=== PATIENT | female | born 1935 | race Caucasian/White ===

== ENCOUNTER 2024-01-06 19:28 | Inpatient (IN) | payer MEDICARE, BC, SELFPAY ==
[2024-01-06 14:30] VITALS: BP 136/68
[2024-01-06 14:50] LABS: % Basophils 0.4 % (0-2); % Eosinophils 0.1 % (0-6); % Immature Granulocytes 0.1 % (0-0.5); % Monocytes 8.2 % (1.7-9.3); % Neutrophils 72.2 % (42.2-75.2); Absolute Lymphocytes 1.4 10^3/uL (1.2-3.4); Absolute Monocytes 0.6 10^3/uL (0.1-0.6); Absolute Neutrophils 5.3 10^3/uL (1.4-6.5); Hematocrit 44.9 % (37.0-47.0); Hemoglobin 14.7 g/dL (12.0-16.0); Mean Corp Hgb Conc. 32.7 g/dL (33.0-37.0); Mean Corpuscular Hgb 32.2 pg (27.0-31.0); Mean Corpuscular Volume 98.2 fL (81.0-99.0); Mean Platelet Volume 10.8 fL (7.4-10.4); Nucleated Red Blood Cells % 0 %; Platelet Count 155 10^3/uL (130-400); Red Blood Cell Count 4.57 10^6/uL (4.20-5.40); White Blood Cell Count 7.4 10^3/uL (4.8-10.8)
[2024-01-06 15:19] LABS: ALT (SGPT) 12 U/L (0-35); AST (SGOT) 20 U/L (14-36); Albumin 3.9 g/dl (3.5-5.0); Alkaline Phosphatase 71 U/L (38-126); Blood Urea Nitrogen 17 mg/dl (7-17); Calcium 10.1 mg/dl (8.4-10.2); Carbon Dioxide 31 mmol/L (22-30); Chloride 104 mmol/L (98-107); Glucose 118 mg/dl (70-99); Potassium 4.2 mmol/L (3.5-5.1); Sodium 139 mmol/L (135-145); Total Bilirubin 1.1 mg/dl (0.2-1.3); Total Protein 6.1 g/dl (6.3-8.2); eGFR 54.53
[2024-01-06 15:54] LABS: Lactic Acid 1.5 mmol/L (0.7-2.0)
--- NOTE | 2024-01-06 16:45 | ED.SKININJ ---
HPI-Injury
<Joey Bowles PA-C - Last Filed: 01/06/24 17:03>
General
Chief Complaint: Skin Problem
Source: patient
Exam Limitations: none
Time Seen by Provider: 01/06/24 16:27
History of Present Illness-Injury
Initial Injury comments:
88-year-old female on Coumadin for history of A-fib presents with worsening redness pain and swelling to the right anterior leg. 10 days ago she bumped her leg while slipping in the shower and developed a hematoma. She developed increasing redness
and pain since then. She has been seen by orthopedics, Dr. Villa 2 times this week. Most recent was today. He saw her today and sent her in. She started on Keflex yesterday has had 2 doses in 24 hours. No sweats or chills. No chest pain or
shortness of breath. No other complaints at this time
Past History
<Joey Bowles PA-C - Last Filed: 01/06/24 17:03>
Past History
ED Past Medical History: HTN and Other (cataracts, macular degeneration)
ED Past Surgical History: Other
Social History
Tobacco: Smoker
Phy Exam
<Joey Bowles PA-C - Last Filed: 01/06/24 17:03>
Physical Exam
Physical Exam:
General: Well-appearing female no acute respiratory distress
HEENT: Normocephalic atraumatic
Heart: Regular rate and rhythm no murmurs
Lungs: Clear no wheeze or rales
Skin: Erythema surrounding hematoma noted over the anterior right acharya. This is tender to the touch. No drainage.
Extremities: No cyanosis
Course
<Joey Bowles PA-C - Last Filed: 01/06/24 17:03>
Orders/Labs/Results
Orders:
Orders
01/06/24 14:40
Complete Blood Count/With Diff Urgent
Comprehensive Metabolic Panel Urgent
Lactic Acid Q4H
Comment: ON ICE, CANCEL 2ND ORDER IF FIRST LACTIC ACID LEVEL <2
01/06/24 17:00
CeFAZolin 1 GRAM [Ancef] 1 gram in 5 ml IV NOW
01/06/24 17:02
Prothrombin Time Urgent
Abnormal Lab Results
01/06/24
14:40
MCH 32.2 H pg
(27.0-31.0)
MCHC 32.7 L g/dL
(33.0-37.0)
RDW 15.0 H %
(11.5-14.5)
MPV 10.8 H fL
(7.4-10.4)
Lymphocytes % 19.0 L %
(20.5-51.1)
Carbon Dioxide 31 H mmol/L
(22-30)
Glucose 118 H mg/dl
(70-99)
Total Protein 6.1 L g/dl
(6.3-8.2)
01/06/24 14:40
01/06/24 14:40
Vital Signs
Initial and Last Documented VS:
Initial Vital Signs
Temp Pulse Resp BP Pulse Ox
98.9 F 80 16 136/68 94
01/06/24 14:30 01/06/24 14:30 01/06/24 14:30 01/06/24 14:30 01/06/24 14:30
Last Documented Vital Signs
Temp Pulse Resp BP Pulse Ox
98.9 F 80 16 136/68 94
01/06/24 14:30 01/06/24 14:30 01/06/24 14:30 01/06/24 14:30 01/06/24 14:30
<Pat Kearney MD - Last Filed: 01/06/24 17:09>
Orders/Labs/Results
Orders:
Orders
01/06/24 14:40
Complete Blood Count/With Diff Urgent
Comprehensive Metabolic Panel Urgent
Lactic Acid Q4H
Comment: ON ICE, CANCEL 2ND ORDER IF FIRST LACTIC ACID LEVEL <2
01/06/24 17:00
CeFAZolin 1 GRAM [Ancef] 1 gram in 5 ml IV NOW
01/06/24 17:02
Prothrombin Time Urgent
Abnormal Lab Results
01/06/24
14:40
MCH 32.2 H pg
(27.0-31.0)
MCHC 32.7 L g/dL
(33.0-37.0)
RDW 15.0 H %
(11.5-14.5)
MPV 10.8 H fL
(7.4-10.4)
Lymphocytes % 19.0 L %
(20.5-51.1)
Carbon Dioxide 31 H mmol/L
(22-30)
Glucose 118 H mg/dl
(70-99)
Total Protein 6.1 L g/dl
(6.3-8.2)
01/06/24 14:40
01/06/24 14:40
Vital Signs
Initial and Last Documented VS:
Initial Vital Signs
Temp Pulse Resp BP Pulse Ox
98.9 F 80 16 136/68 94
01/06/24 14:30 01/06/24 14:30 01/06/24 14:30 01/06/24 14:30 01/06/24 14:30
Last Documented Vital Signs
Temp Pulse Resp BP Pulse Ox
98.9 F 80 16 136/68 94
01/06/24 14:30 01/06/24 14:30 01/06/24 14:30 01/06/24 14:30 01/06/24 14:30
<Joey Bowles PA-C - Last Filed: 01/06/24 17:03>
MDM/Problems Addressed
Differential Diagnosis Includes:
Hematoma right anterior acharya with surrounding erythema question possible cellulitis. No palpable fluid collection to suggest an abscess. She has been on antibiotics since yesterday and is getting worse. Seen by the foot and ankle specialist today
and sent here for admission for IV antibiotics.
Will check labs.
<Joey Bowles PA-C - Last Filed: 01/06/24 17:03>
*Critical Care Note
Total Time (30-74mins, 75-104mins- exclusive of procedures): Not Applicable
<Joey Bowles PA-C - Last Filed: 01/06/24 17:03>
Update Note
Update Note:
Reviewed call information from Dr. Villa the belt maker helper. He requested admission for IV antibiotics. Ancef ordered INR pending. Admit to hospitalist
ED Attending Note
<Joey Bowles PA-C - Last Filed: 01/06/24 17:03>
-
Portions of this chart may have been created with voice recognition software.� Occasional wrong word or��sound alike� substitutions may have occurred due to the inherent limitations of voice recognition software.
<Pat Kearney MD - Last Filed: 01/06/24 17:09>
ED Attending Note
Patient seen and examined by attending physician: Yes
I performed the substantive portion of visit, reviewed & personally made and approve the management plan that is documented in note by myself or WALDO.: Yes
ED Attending Note:
Patient presenting for worsening skin infection and sent for admission at the request of her belt maker helper. On my evaluation there is an area of erythema with underlying hematoma. Will treat with IV antibiotics and admit
Discharge Plan
Departure
Patient Disposition: Admit
Date of Disposition: 01/06/24
Time of Disposition: 17:03
Admit to: Med/Surg
Presentation/result/management discussed w/ accepting MD/DO: Hospitalist
Discharge Problem:
Cellulitis
Prescriptions:
No Action
lisinopril 20 MG tablet
20 mg PO 1700
warfarin [Jantoven] 2.5 MG tablet
2.5 mg PO MOFR
warfarin [Jantoven] 5 MG tablet
5 mg PO SUTUWETHSA
hydrochlorothiazide 12.5 MG capsule
12.5 mg PO 1700
zolpidem 10 MG tablet
10 mg PO HS
rosuvastatin 10 MG tablet
10 mg PO QPM
vit C,Y-Bn-dfxvc-lutein-zeaxan [PreserVision AREDS-2] 1 EACH capsule
2 cap PO 1700
Referrals:
UNKNOWN - PT DOES,NOT KNOW [Family Provider] -
Interventions
Interventions:
*Risk Screen - Suicide Last Done: 01/06/24 14:30
*General Assessment Last Done: 01/06/24 14:30
*Neglect/Abuse Screening Last Done: 01/06/24 14:30
Discharge Date and Time
Print Language: KOREAN
[2024-01-06] MEDS: ANCEF 1000 MG IV (17:21)
[2024-01-06 17:35] LABS: INR 1.04; PT 13.4 Sec (11.4-14.6)
--- NOTE | 2024-01-06 17:57 | HPS.HSE ---
Family Physician
-
Family Physician: NOT KNOW UNKNOWN - PT DOES
Chief Complaint
-
R leg pain
History of Present Illness
88 y/o F hx of PAD, PAF on Coumadin, Essential HTN, HLD, presents to ER with RLE redness/swelling and pain. She suffered a trauma 10 days ago - bumped her leg while slipping in the shower. She developed a hematoma and has followed with Dr. Villa
of orthopedics. In past few days she developed redness, swelling, and further pain. She was prescribed Keflex and took 2 doses without improvement. She was seen again today and referred to ER for admission and MRI To evaluate for underlying fluid
collection. No fevers, chills, no SOB or CP. Currently no other complaints.
Medical History
Past Medical History
Past Medical History: Reports Other (PAD, PAF on Coumadin, Essential HTN, HLD)
Past Surgical History: Reports Appendectomy, Cholecystectomy, Tonsilectomy and Other (carotid endarterectomy, )
Social History
Tobacco: Smoker
Alcohol: None
Drug: None
Living: With Family
Family History
Family History: Not pertinent
Allergies / Home Medications
Allergies reflects when Allergies were last updated in [facility].
Home Medications with original date entered in [facility]
Allergy/Medication List:
Allergies
Allergy/AdvReac Type Severity Reaction Status Date / Time
No Known Allergies Allergy Verified 01/06/24 14:30
Home Medications
hydrochlorothiazide 12.5 mg capsule 12.5 mg PO DAILY@169910/08/13
lisinopril 20 mg tablet 20 mg PO DAILY@169910/08/13
rosuvastatin 10 mg tablet 10 mg PO DAILY@169910/08/13
vit C 250 mg-vit E 90 mg-zinc 40 mg-copper 1 ed-ooqkfg-soosnw capsule (PreserVision AREDS-2) 2 cap PO DAILY@169910/08/13
warfarin 2.5 mg tablet (Jantoven) 2.5 mg PO DAILY@169910/08/13
aspirin 81 mg tablet,delayed release 81 mg PO DAILY@169901/06/24
cefadroxil 500 mg capsule 500 mg PO Q12H 01/06/24
Review of Systems
-
A 12 point ROS was completed and negative except as noted: Yes
Physical Exam
Vital Signs
Vital Signs
Temp Pulse Resp BP Pulse Ox
98.9 F 80 16 136/68 94
01/06/24 14:30 01/06/24 14:30 01/06/24 14:30 01/06/24 14:30 01/06/24 14:30
Physical Exam
General: No Apparent Distress
HEENT: NormoCephalic and Anicteric
Respiratory: No Wheezes
Cardiac: S1/S2 and Regular Rhythm
GI: Soft
Musculoskeletal: Other (Erythema surrounding hematoma noted over the anterior right acharya. This is tender to the touch. No drainage.)
Neuro: AO x 3
Hematologic/Lymphatic: No Lymphadenopathy
Psych: Calm
Laboratory Results
-
01/06/24 14:40
01/06/24 14:40
Laboratory Results
PT 13.4 Sec (11.4-14.6) 01/06/24 17:17
INR 1.04 01/06/24 17:17
Lactic Acid Cancelled 01/06/24 18:45
Total Bilirubin 1.1 mg/dl (0.2-1.3) 01/06/24 14:40
AST 20 U/L (14-36) 01/06/24 14:40
ALT 12 U/L (0-35) 01/06/24 14:40
Alkaline Phosphatase 71 U/L (38-126) 01/06/24 14:40
Data Reviewed
-
Lab Data: Labs Reviewed by me
Impression/Plan
-
Assessment:
RLE traumatic Hematoma with underlying infection
- start IV Ancef and IV Vancomycin. Consult ID.
- check MRI to evaluate for underlying collection
- consult Orthopedics ([facility])
- holding Coumadin in case of operative intervention required
Parox A. Fib
- hold Coumadin; start IV heparin which requires intensive monitoring. Awaiting patients weight for accurate dosing.
Hx of PAD
Hx of HLD
- continue ASA/statin
Essential HTN
- continue BP meds
DVT ppx: IV Heparin drip
Code: Full
[2024-01-06 18:34] VITALS: BMI 33.2
[2024-01-06 18:39] VITALS: BP 158/76
[2024-01-06 20:49] VITALS: BP 173/81; BMI 31.4
--- NOTE | 2024-01-06 21:02 | PHA.VAN.IN ---
Assessment
- Assessment
Renal Function: Unknown baseline
Concomitant Antimicrobials: ANCEF
- Previous Dosing Experience
Previous Regimen: NONE
AUC Dosing Plan
- Dosing Variables
Dosing Weight (kg): 96
Dosing CrCl (ml/min): 47
Vd coefficient (L/kg): 0.6
- Empiric Dosing
Initial / Loading Dose: 2GM
Maintenance Regimen: 1250MG IV Q24H
Estimated AUC (mcg*h/mL): 516
Estimated Peak (mcg*h/mL): 33.5
Estimated Trough (mcg/ml): 12.6
Estimated Half Life (H): 16
Pharmacokinetics Vancomycin I
- -
Patient Age: 88
Patient Sex: Female
Vancomycin Day #: 1
Indication: Skin And Soft Tissue (RLE CELLULITIS)
Requesting Provider: ELAYNE
Height / Weight:
Height 5 ft 7 in
Actual Weight 90.974 kg
- Vital Signs / Lab Results
Temp Pulse Resp BP Pulse Ox
97.7 F 66 18 173/81 95
01/06/24 20:49 01/06/24 20:49 01/06/24 20:49 01/06/24 20:49 01/06/24 20:49
Lab Results - Hematology
01/06/24
14:40
WBC 7.4
Lab Results - Chemistry
01/06/24
14:40
BUN 17
Creatinine 1.0
Albumin 3.9
01/06/24 01/06/24
14:40 18:45
Lactic Acid 1.5 Cancelled
[2024-01-06 21:07] LABS: APTT 29.2 Sec (23.4-35.0)
[2024-01-06] MEDS: VANCOCIN 540 MG IV (21:11)
[2024-01-06 21:41] VITALS: BMI 31.4
[2024-01-06] MEDS: HEPARIN 25000 UNITS/250 ML IV (22:28)
[2024-01-06 23:40] VITALS: BP 158/78
[2024-01-07] MEDS: ANCEF 5 IV ×2 (02:33→10:31)
[2024-01-07 03:14] VITALS: BP 160/91
[2024-01-07 05:14] LABS: Hematocrit 41.8 % (37.0-47.0); Hemoglobin 13.9 g/dL (12.0-16.0); Mean Corp Hgb Conc. 33.3 g/dL (33.0-37.0); Mean Corpuscular Hgb 32.2 pg (27.0-31.0); Mean Corpuscular Volume 96.8 fL (81.0-99.0); Platelet Count 136 10^3/uL (130-400); Red Blood Cell Count 4.32 10^6/uL (4.20-5.40); Red Cell Dist. Width 15.1 % (11.5-14.5)
[2024-01-07 05:19] LABS: APTT 86.1 Sec (23.4-35.0)
[2024-01-07] MEDS: VANCOCIN 275 MG IV (05:22)
[2024-01-07 05:33] LABS: Blood Urea Nitrogen 15 mg/dl (7-17); Calcium 9.6 mg/dl (8.4-10.2); Carbon Dioxide 25 mmol/L (22-30); Chloride 111 mmol/L (98-107); Estimated Creatinine Clearance 51 ml/min; Glucose 104 mg/dl (70-99); Potassium 4.2 mmol/L (3.5-5.1); Sodium 138 mmol/L (135-145); eGFR > 60.00
[2024-01-07 07:00] VITALS: BP 177/90
--- NOTE | 2024-01-07 08:14 | PHA.VAN.FU ---
Vancomycin Assessment / Plan
- Assessment
Renal Function: SCR Decreasing (1.0>0.9)
WBC's are: Trending Down (7.4>6.0)
In the past 24 hrs, patient has been: Afebrile
Concomitant Antimicrobials: Cefazolin
- Dosing Plan
Continue: Vancomycin 1250mg IV Q24hr
- Monitoring Plan
No level(s) ordered at this time: Will order levels according to vancomycin dosing protocol
- Follow Up
Pharmacy will continue to follow.
Vancomycin Follow UP
- -
Patient Age: 88
Patient Sex: Female
Vancomycin Day #: 2
Indication: Skin And Soft Tissue (RLE CELLULITIS)
Requesting Provider: ELAYNE
Pertinent Antimicrobial Allergies:
No known antibiotic allergies
Height / Weight:
Height 5 ft 7 in
Actual Weight 90.974 kg
IBW in k.6
Adjusted BW in k.3
Pertinent Past Medical History: BMI~31
- Vital Signs / Lab Results
Temp Pulse Resp BP Pulse Ox
98.1 F 77 18 177/90 95
01/07/24 07:00 01/07/24 07:00 01/07/24 07:00 01/07/24 07:00 01/07/24 07:00
Lab Results - Hematology
01/06/24 01/07/24
14:40 04:44
WBC 7.4 6.0
Lab Results - Chemistry
01/06/24 01/07/24
14:40 04:44
BUN 17 15
Creatinine 1.0 0.9
Estimated Creat Clear 51
Albumin 3.9
01/06/24 01/06/24
14:40 18:45
Lactic Acid 1.5 Cancelled
--- NOTE | 2024-01-07 10:47 | W.PN.HOSP.TC ---
Today's Communication/Plan
-
IV heparin for now until clarified that no procedures planned. MRI is pending
continue IV Abx
follow ID/Ortho recs
Assessment / Plan
Assessment / Plan
Assessment:
RLE traumatic Hematoma with underlying infection
- continue IV Ancef
- continue IV Vancomycin (requires intensive monitoring of levels)
- ID consulted
- check MRI to evaluate for underlying collection
- consult Orthopedics ([facility])
- holding Coumadin in case of operative intervention required
Parox A. Fib
- hold Coumadin; continue IV heparin which requires intensive monitoring
Hx of PAD
Hx of HLD
- continue ASA/statin
Essential HTN
- continue BP meds
DVT ppx: IV Heparin drip
Code: Full
Anticipated Discharge: > 48 hours
Subjective/Interval History
-
Date of Service: January 07, 2024
reports R leg pain but wound improving
no fever/chills
Objective Data
-
Labs:
Laboratory Results
01/07/24 01/07/24
04:44 11:30
WBC 6.0
Hgb 13.9
Hct 41.8
Plt Count 136
APTT 86.1 H Pending
Sodium 138
Potassium 4.2
Chloride 111 H
Carbon Dioxide 25
BUN 15
Creatinine 0.9
Glucose 104 H
Calcium 9.6
Vital Signs:
Vital Signs
Temp Pulse Resp BP Pulse Ox
98.1 F 77 18 177/90 95
01/07/24 07:00 01/07/24 07:00 01/07/24 07:00 01/07/24 07:00 01/07/24 07:00
I&O
01/06/24 01/07/24 01/08/24
06:59 06:59 06:59
Intake Total 1355 / 1355
Balance 1355 / 1355
Physical Exam
-
General: No Apparent Distress
HEENT: Normocephalic and Atraumatic
Respiratory: Negative Wheezes
Cardiac: Regular Rhythm and S1/S2
GI: Soft
Genito-urinary: No Costovertebral Tender
Musculoskeletal: Other (RLE wound, with surrounding erythema, improving)
Neuro: AO x 3
Hematologic / Lymphatic: No Lymphadenopathy
Psych: Calm
Data Reviewed
-
Total Time Spent with Patient (in minutes): 51
Labs: Labs Reviewed by me
[2024-01-07 11:00] VITALS: BP 152/90
--- NOTE | 2024-01-07 11:00 | W.PN.UPDATE ---
Update Note
Progress Note Update
Patient seen at bedside with daughter
-Compression dressing applied
-Obtain MRI RLE
-Continue antibiotics, appreciate ID recs
-Will follow
[2024-01-07 11:47] LABS: APTT 83.2 Sec (23.4-35.0)
[2024-01-07] MEDS: ATIVAN 0.5 MG PO (13:09)
--- NOTE | 2024-01-07 13:23 | CON.ID ---
Consultation
-
Date/Time Consultation Requested: 01/06/20242034
Date/Time Consultation Performed: 01/07/2024 1315
Requesting Provider: Dr. Laughlin
Performing Provider: Dr. Goldsmith
Reason for Consultation: Right lower extremity cellulitis
Chief Complaint / Past History
History of Present Illness
Melissa Pat is a 8-year-old female being evaluated at the request of Dr. Laughlin in regards to right lower extremity cellulitis. History is obtained from chart review, along with patient interview.
The patient has a significant past medical history of A-fib, and is maintained on anticoagulation. She reports that approximately 10 days ago she was getting in the tub to take a shower. She placed a left foot down but it slid slightly and she
banged the anterior portion of her right leg. She reports that there was significant bleeding thereafter but it subsequently stopped with compression.
Over the intervening days she had some increase in redness, but has had ongoing pain and discomfort in the area. She has been followed by Orthopedics in the outpatient setting but yesterday the area appeared worse and she was sent in for further
evaluation. She was on Keflex yesterday for 2 doses prior to admission.
At the present, she notes swelling of the leg, along with a 'burning' sensation to the anterior leg area.
Past History
Additional Past Medical History:
HTN
A-fib (on Coumadin)
Cataracts
Macular degeneration
PAD
Dyslipidemia
Additional Past Surgical History:
Appendectomy
Cholecystectomy
Tonsillectomy
Carotid endarterectomy
Allergy History:
No Known Allergies Allergy (Verified 01/06/24 14:30)
Medications Reviewed: Yes
Current Antibiotics:
Cefazolin 1 g every 8 hours
Vancomycin (dosing per pharmacy)
Social History
Tobacco: Smoker (1 PPD)
Alcohol: Daily
Drug: None
Living: With Family
Employment: Not Employed
Family History
Family History: Not Pertinent
Review of Systems
Vital Signs
Temp Pulse Resp BP Pulse Ox
97.9 F 75 18 152/90 96
01/07/24 11:00 01/07/24 11:00 01/07/24 11:00 01/07/24 11:00 01/07/24 11:00
Physical Exam
Physical Exam
Constitutional: No Acute Distress, Comfortable and Non-toxic
Head: Normocephalic
Eyes: Pupils Equal, Pupils Round, No Conjunctival Hemorrhage and Sclera Anicteric
Oral: No Thrush and No Ulcers
Cardiovascular: Irregular Rate and S1/S2; Negative S3/S4 or Murmur
Pulmonary: Clear; Negative Wheezes, Rales or Rhonchi
Gastrointestinal: Soft, Non Tender, Non Distended, Normal Bowel Sounds, No Rebound and No Guarding
Extremities: Edema and Erythema
Wound: Other (Anterior tibial hemorrhage noted with surrounding erythema. Positive edema. No purulence.)
Neurological: Awake and Alert
Psychological: Calm
Lab / Diagnostic Study Results
01/07/24 04:44
01/07/24 04:44
Abs Immat Gran (auto) 0.0 10^3/uL (0-0.05) 01/06/24 14:40
Absolute Neuts (auto) 5.3 10^3/uL (1.4-6.5) 01/06/24 14:40
Absolute Lymphs (auto) 1.4 10^3/uL (1.2-3.4) 01/06/24 14:40
Absolute Monos (auto) 0.6 10^3/uL (0.1-0.6) 01/06/24 14:40
Absolute Basos (auto) 0.0 10^3/uL (0-0.2) 01/06/24 14:40
Immature Gran % 0.1 % (0-0.5) 01/06/24 14:40
Neutrophils % 72.2 % (42.2-75.2) 01/06/24 14:40
Lymphocytes % 19.0 % (20.5-51.1) L 01/06/24 14:40
Monocytes % 8.2 % (1.7-9.3) 01/06/24 14:40
Eosinophils % 0.1 % (0-6) 01/06/24 14:40
Basophils % 0.4 % (0-2) 01/06/24 14:40
PT 13.4 Sec (11.4-14.6) 01/06/24 17:17
INR 1.04 01/06/24 17:17
Lactic Acid Cancelled 01/06/24 18:45
Microbiology Results
Micro:
01/06/24 21:51 MRSA Screen - Pending
Nose
Assessment / Plan
Right lower extremity hematoma secondary to trauma
Suspected cellulitis
HTN
A-fib (on Coumadin)
Cataracts
Macular degeneration
PAD
Dyslipidemia
Recommendations:
Continue with cefazolin. Increase dose to 2 g IV every 8 hours
Discontinue further vancomycin.
Patient currently going for MRI to assess for underlying hematoma. If seen, may need some degree of evacuation.
Monitor white count temperature curve.
Local care to the wound bed area
--- NOTE | 2024-01-07 14:03 | CM ---
CM following re: discharge planning.
Reviewed pt's chart, met with pt and pt's daughter at bedside.
Pt is an 88 year old female, admitted with primary dx of RLE traumatic Hematoma with underlying infection.
Pt reports she lives in [place] and just moved to daughter's house one week ago and will stay with daughter, 1SH, no steps. Pt reports her another daughter , emotional support offered and provided. Pt described herself as independent in
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 NO DME, VN or SNF history.
PCP: per daughter, pt's PCP will be [facility]
Pharmacy: [facility]
D/C plan: home with anticipated no needs. Daughter to transport at discharge.
CM will follow with discharge plan updates as hospitalization progresses
[2024-01-07] MEDS: ANCEF 10 IV ×2 (14:47→23:10)
[2024-01-07 15:00] VITALS: BP 159/88
[2024-01-07] MEDS: ORETIC 12.5 MG PO (16:35)
[2024-01-07] MEDS: ASPIR LOW (ENTERIC COATED) 81 MG PO (16:36)
[2024-01-07] MEDS: CRESTOR 10 MG PO (16:36)
[2024-01-07] MEDS: ZESTRIL 20 MG PO (16:36)
[2024-01-07 18:28] LABS: APTT 67.5 Sec (23.4-35.0)
[2024-01-07 19:26] VITALS: BP 144/81
[2024-01-07 23:16] VITALS: BP 157/77
[2024-01-07] MEDS: HEPARIN 25000 UNITS/250 ML IV (23:48)
[2024-01-08 02:54] LABS: APTT 105.8 Sec (23.4-35.0)
[2024-01-08 03:10] VITALS: BP 136/78
[2024-01-08] MEDS: ANCEF 10 IV (05:18)
[2024-01-08 07:00] VITALS: BP 129/84
[2024-01-08] MEDS: TYLENOL 650 MG PO (08:24)
--- NOTE | 2024-01-08 09:24 | W.PN.UPDATE ---
Update Note
Progress Note Update
Ms. Pat is resting comfortably in bed this morning. She reports she is feeling about the same. She has no questions or concerns at this time.
On exam, the erythema about her anterior acharya is slightly improved from yesterday. There is serosanguineous drainage on the dressing, but no draining or bleeding at present.
MRI R Lower Extremity IMPRESSION:
1. Irregular small region of nonenhancing T2 hyperintense signal in the subcutaneous fat of the anterior right lower leg measuring approximately 1.8 x 0.9 cm. Differential considerations include a laceration, hematoma, or small developing abscess.
Adjacent subcutaneous soft tissue edema and enhancement suggesting cellulitis.
2. No MRI evidence for osteomyelitis or septic arthritis.
Overall, Ms. Pat seems to be gradually improving. Based on this and her MRI findings, there is no indication for surgical intervention at this time. This was discussed with the patient, and she is in agreement with this plan. She is eager to be
discharged home. Continue with abx per medicine and ID. Her leg was re-wrapped in a compressive dressing this morning. Ortho/podiatry will continue to follow along. Please reach out with any additional questions or concerns.
[2024-01-08 09:54] LABS: APTT 115.1 Sec (23.4-35.0)
[2024-01-08 10:03] LABS: Blood Urea Nitrogen 15 mg/dl (7-17); Calcium 9.8 mg/dl (8.4-10.2); Carbon Dioxide 27 mmol/L (22-30); Chloride 104 mmol/L (98-107); Estimated Creatinine Clearance 51 ml/min; Glucose 132 mg/dl (70-99); Potassium 4.1 mmol/L (3.5-5.1); Sodium 137 mmol/L (135-145); eGFR > 60.00
[2024-01-08 10:37] LABS: Hematocrit 41.4 % (37.0-47.0); Hemoglobin 13.7 g/dL (12.0-16.0); Mean Corp Hgb Conc. 33.1 g/dL (33.0-37.0); Mean Corpuscular Hgb 32.2 pg (27.0-31.0); Mean Corpuscular Volume 97.2 fL (81.0-99.0); Mean Platelet Volume 11.5 fL (7.4-10.4); Platelet Count 137 10^3/uL (130-400); Red Blood Cell Count 4.26 10^6/uL (4.20-5.40); White Blood Cell Count 6.5 10^3/uL (4.8-10.8)
[2024-01-08 11:00] VITALS: BP 143/69
--- NOTE | 2024-01-08 11:43 | W.PN.ID1 ---
Date of Service
Date of Service: January 08, 2024
Today's Communication
Transition to keflex.
Assessment / Plan
Right lower extremity hematoma secondary to trauma
Suspected cellulitis
HTN
A-fib (on Coumadin)
Cataracts
Macular degeneration
PAD
Dyslipidemia
Recommendations:
Hematoma stable. Erythema minimal.
Continue with local care to the hematoma site. I have counseled the family that there may be skin breakdown given tissue infiltration by blood, and she may ultimately develop some degree of wound in the area. Overall, the area appears stable, and
I would continue with local care.
Transition to oral Keflex for an additional 5 days of therapy.
����������������������������������������������������������
Chief Complaint
-: Other (RLE hematoma)
Subjective / Review of Systems
Review of Systems: No Fever and No Chills
Vital Signs / Physical Exam
Vital Signs
Vital Signs
Temp Pulse Resp BP Pulse Ox
97.8 F 82 18 129/84 95
01/08/24 07:00 01/08/24 07:00 01/08/24 07:00 01/08/24 07:00 01/08/24 07:00
Physical Exam
Constitutional: No Acute Distress, Comfortable and Non-toxic
Eyes: Sclera Anicteric
Pulmonary: Non Labored
Extremities: Edema (trace RLE) and Erythema (mild)
Wound: Other (distal right anterior tibial hematoma. )
Neurological: Awake and Alert
Psychological: Calm
Objective Data
Lab Data
Lab Results
01/08/24 09:16
01/08/24 09:16
PT 13.4 Sec (11.4-14.6) 01/06/24 17:17
INR 1.04 01/06/24 17:17
APTT 115.1 Sec (23.4-35.0) H 01/08/24 09:16
Estimated Creat Clear 51 ml/min 01/08/24 09:16
Lactic Acid Cancelled 01/06/24 18:45
Total Bilirubin 1.1 mg/dl (0.2-1.3) 01/06/24 14:40
AST 20 U/L (14-36) 01/06/24 14:40
ALT 12 U/L (0-35) 01/06/24 14:40
Alkaline Phosphatase 71 U/L (38-126) 01/06/24 14:40
Most recent labs reviewed.
Micro Results:
01/06/24 21:51 MRSA Screen - Final
Nose No Methicillin Resistant Staphylococcus aureus isolated.
Imaging:
01/07/2024 MRI right lower extremity: Irregular small region of nonenhancing T2 hyperintense signal in the subcutaneous fat of the anterior right lower leg measuring approximately 1.8 x 0.9 cm. Differential considerations include a laceration,
hematoma, or small developing abscess. Adjacent subcutaneous soft tissue edema and enhancement suggesting cellulitis. No MRI evidence for osteomyelitis or septic arthritis.
Care Review
Plan reviewed with: Physician (Hospitalist)
--- NOTE | 2024-01-08 12:42 | W.PN.HOSP.TC ---
Today's Communication/Plan
-
dc home
Assessment / Plan
Assessment / Plan
Assessment:
RLE traumatic Hematoma with underlying infection
- MRI: Irregular small region of nonenhancing T2 hyperintense signal in the subcutaneous fat of the anterior right lower leg measuring approximately 1.8 x 0.9 cm. Differential considerations include a laceration, hematoma, or small developing
abscess. Adjacent subcutaneous soft tissue edema and enhancement suggesting cellulitis. No MRI evidence for osteomyelitis or septic arthritis.
- no operative intervention per Ortho
- s/p IV Ancef, transitioned to PO Keflex x 5 days per ID
- OP Ortho f/u
Parox A. Fib
- resume Coumadin at discharge
Hx of PAD
Hx of HLD
- continue ASA/statin
Essential HTN
- continue BP meds
DVT ppx: Coumadin
Code: Full
More than 30 minutes spent in discharge including
Final examination of the patient
Summarizing hospital stay
Instructions for continuing care to all relevant caregivers
Preparation of discharge records, prescriptions, and referral forms
Total time spent (in minutes):41
Anticipated Discharge: Today
Subjective/Interval History
-
Date of Service: January 08, 2024
no acute events
feels like pain improving, no fever/chills
Objective Data
-
Labs:
Laboratory Results
01/08/24 01/08/24 01/08/24
02:13 09:16 16:00
WBC 6.5
Hgb 13.7
Hct 41.4
Plt Count 137
APTT 105.8 H 115.1 H Pending
Sodium 137
Potassium 4.1
Chloride 104
Carbon Dioxide 27
BUN 15
Creatinine 0.9
Glucose 132 H
Calcium 9.8
Vital Signs:
Vital Signs
Temp Pulse Resp BP Pulse Ox
97.8 F 82 18 129/84 95
01/08/24 07:00 01/08/24 07:00 01/08/24 07:00 01/08/24 07:00 01/08/24 07:00
I&O
01/07/24 01/08/24 01/09/24
06:59 06:59 06:59
Intake Total 1355 / 1355 1040 / 1040
Balance 1355 / 1355 1040 / 1040
Physical Exam
-
General: No Apparent Distress
HEENT: Normocephalic and Atraumatic
Respiratory: Negative Wheezes
Cardiac: Regular Rhythm and S1/S2
GI: Soft
Genito-urinary: No Costovertebral Tender
Musculoskeletal: Other (RLE wound, with surrounding erythema, improving)
Neuro: AO x 3
Psych: Calm
Data Reviewed
-
Total Time Spent with Patient (in minutes): 41
Labs: Labs Reviewed by me
--- NOTE | 2024-01-08 12:48 | W.DS.TRANS ---
DC Summary - Patient Accounts Coordinator
-
Discharge Instructions:
Sleep Apnea Risk Low
Discharge Diagnosis/Procedures RLE hematoma with cellulitis
Diet Regular
Activity As tolerated
Instructions:
Stand-Alone Forms:
Changes to Home Medications: No
Discharge Medications:
DC Medications w/original date entered in [facility]
lisinopril 20 mg tablet 20 mg PO DAILY@1700 Blood Pressure 10/08/13
rosuvastatin 10 mg tablet 10 mg PO DAILY@1700 High Cholesterol 10/08/13
vit C 250 mg-vit E 90 mg-zinc 40 mg-copper 1 qq-rppnpk-etojga capsule (PreserVision AREDS-2) 2 cap PO DAILY@1700 Supplement 10/08/13
warfarin 2.5 mg tablet (Jantoven) 2.5 mg PO DAILY@1700 Blood Clot Prevention/Tx 10/08/13
aspirin 81 mg tablet,delayed release 81 mg PO DAILY@1700 Blood Clot Prevention/Tx 01/06/24
cephalexin 500 mg capsule 500 mg PO QID #20 caps 01/08/24
hydrochlorothiazide 12.5 mg tablet 12.5 mg PO DAILY@1700 #30 tabs 01/08/24
Home Medication Changes
Pending Results: No
Total time spent discharging patient (in min): 42
[2024-01-08] MEDS: KEFLEX 500 MG PO (12:56)
--- NOTE | 2024-01-08 13:00 | CM ---
CM following re: discharge planning.
Reviewed pt's chart, met with pt and daughter Saba at bedside.
Discharge order noted. Both pt and her daughter are aware, expressed their agreement with discharge. IMM reviewed, placed on chart, pt has a copy.
Pt stated she is independent with functional ability, no after care VN services indicated. pt stated she will be adjusting to her new place at daughter's house. pt's daughter stated she will make an appointment with new PCP soon.
D/C plan: home no needs. Daughter to transport.
== END 2024-01-08 13:39 | disposition home or self-care (01) | DRG 603 ==
LOC: 3 WEST ACU 19:28
PROVIDERS: Emergency Medicine; Physician Assistant; ADMITTING PHYSICIAN Pediatrics Neonatal-Perinatal Medicine; ATTENDING PHYSICIAN Internal Medicine; CONSULT PHYSICIAN Internal Medicine Infectious Disease; CONSULT PHYSICIAN Student in an Organized Health Care Education/Training Program; EMERGENCY PHYSICIAN Student in an Organized Health Care Education/Training Program
DX: L03.115 Cellulitis of right lower limb (principal); S80.11XA Contusion of right lower leg, initial encounter; M79.89 Other specified soft tissue disorders; I48.0 Paroxysmal atrial fibrillation; H26.9 Unspecified cataract; I73.9 Peripheral vascular disease, unspecified; E78.5 Hyperlipidemia, unspecified; H35.30 Unspecified macular degeneration; I10 Essential (primary) hypertension; F17.210 Nicotine dependence, cigarettes, uncomplicated; W18.2XXA Fall in (into) shower or empty bathtub, initial encounter; Y93.E1 Activity, personal bathing and showering; Y92.002 Bathroom of unspecified non-institutional (private) residence as the place of occurrence of the external cause; Z79.01 Long term (current) use of anticoagulants
CPT/HCPCS: 73720; 80048; 80053; 83605; 85025; 85027; 85610; 85730; 87070; 96374; 99285; A9575

== ENCOUNTER → 2024-01-23 07:48 | Outpatient (REF) | payer MEDICARE, BC, SELFPAY | LOC: WOUND 07:48 | PROVIDERS: ATTENDING PHYSICIAN Surgery; FAMILY PHYSICIAN Nurse Practitioner Family | DX: L97.223 Non-pressure chronic ulcer of left calf with necrosis of muscle (principal); I48.91 Unspecified atrial fibrillation; Z79.01 Long term (current) use of anticoagulants; F17.210 Nicotine dependence, cigarettes, uncomplicated | CPT/HCPCS: 11042; 99203 ==

== ENCOUNTER → 2024-01-30 14:37 | Outpatient (REF) | payer MEDICARE, BC, SELFPAY | LOC: WOUND 14:37 | PROVIDERS: ATTENDING PHYSICIAN Surgery; FAMILY PHYSICIAN Nurse Practitioner Family | DX: L97.223 Non-pressure chronic ulcer of left calf with necrosis of muscle (principal); F17.210 Nicotine dependence, cigarettes, uncomplicated; I48.91 Unspecified atrial fibrillation; Z79.01 Long term (current) use of anticoagulants | CPT/HCPCS: 11042 ==

== ENCOUNTER → 2024-02-13 09:40 | Outpatient (REF) | payer MEDICARE, BC, SELFPAY | LOC: WOUND 09:40 | PROVIDERS: ATTENDING PHYSICIAN Surgery; FAMILY PHYSICIAN Nurse Practitioner Family | DX: L97.223 Non-pressure chronic ulcer of left calf with necrosis of muscle (principal); F17.210 Nicotine dependence, cigarettes, uncomplicated; Z79.01 Long term (current) use of anticoagulants; I48.91 Unspecified atrial fibrillation | CPT/HCPCS: 11042 ==

== ENCOUNTER → 2024-02-20 13:30 | Outpatient (REF) | payer MEDICARE, BC, SELFPAY | LOC: WOUND 13:30 | PROVIDERS: ATTENDING PHYSICIAN Surgery | DX: L97.223 Non-pressure chronic ulcer of left calf with necrosis of muscle (principal); F17.210 Nicotine dependence, cigarettes, uncomplicated; I48.91 Unspecified atrial fibrillation; Z79.01 Long term (current) use of anticoagulants | CPT/HCPCS: 11042 ==

== ENCOUNTER → 2024-02-27 09:08 | Outpatient (REF) | payer MEDICARE, BC, SELFPAY | LOC: WOUND 09:08 | PROVIDERS: ATTENDING PHYSICIAN Surgery; FAMILY PHYSICIAN Nurse Practitioner Family | DX: L97.223 Non-pressure chronic ulcer of left calf with necrosis of muscle (principal); I48.91 Unspecified atrial fibrillation; Z79.01 Long term (current) use of anticoagulants; F17.210 Nicotine dependence, cigarettes, uncomplicated | CPT/HCPCS: 11042 ==

== ENCOUNTER → 2024-03-12 09:39 | Outpatient (REF) | payer MEDICARE, BC, SELFPAY | LOC: WOUND 09:39 | PROVIDERS: ATTENDING PHYSICIAN Surgery; FAMILY PHYSICIAN Nurse Practitioner Family | DX: L97.223 Non-pressure chronic ulcer of left calf with necrosis of muscle (principal); I48.91 Unspecified atrial fibrillation; F17.210 Nicotine dependence, cigarettes, uncomplicated; Z79.01 Long term (current) use of anticoagulants | CPT/HCPCS: 99213 ==

== ENCOUNTER → 2024-03-26 08:35 | Outpatient (REF) | payer MEDICARE, BC, SELFPAY | LOC: WOUND 08:35 | PROVIDERS: ATTENDING PHYSICIAN Surgery; FAMILY PHYSICIAN Nurse Practitioner Family | DX: L97.223 Non-pressure chronic ulcer of left calf with necrosis of muscle (principal); F17.210 Nicotine dependence, cigarettes, uncomplicated; I48.91 Unspecified atrial fibrillation; Z79.01 Long term (current) use of anticoagulants | CPT/HCPCS: 99212 ==

== ENCOUNTER → 2024-06-28 12:13 | Outpatient (REF) | payer MEDICARE, BC, SELFPAY | LOC: HWRAD 12:13 | PROVIDERS: ATTENDING PHYSICIAN Nurse Practitioner Family | DX: M54.50 Low back pain, unspecified (principal); M25.552 Pain in left hip | CPT/HCPCS: 72110; 73502 ==

== ENCOUNTER → 2024-07-14 10:50 | Outpatient (REF) | payer MEDICARE, BC, SELFPAY | LOC: RAD 10:50 | PROVIDERS: ATTENDING PHYSICIAN Physician Assistant; FAMILY PHYSICIAN Nurse Practitioner Family | DX: M54.16 Radiculopathy, lumbar region (principal) | CPT/HCPCS: 72131 ==

== ENCOUNTER → 2025-01-23 14:40 | Outpatient (REF) | payer MEDICARE, BC, SELFPAY | LOC: EMG 14:40 | PROVIDERS: ATTENDING PHYSICIAN Physician Assistant; FAMILY PHYSICIAN Nurse Practitioner Family | DX: M48.062 Spinal stenosis, lumbar region with neurogenic claudication (principal); M54.16 Radiculopathy, lumbar region; M79.605 Pain in left leg; R20.0 Anesthesia of skin | CPT/HCPCS: 95886; 95910 ==

== ENCOUNTER → 2025-03-05 07:42 | Outpatient (REF) | payer MEDICARE, BC, SELFPAY | LOC: RAD 07:42 | PROVIDERS: ATTENDING PHYSICIAN Registered Nurse; FAMILY PHYSICIAN Nurse Practitioner Family | DX: Z13.6 Encounter for screening for cardiovascular disorders (principal); I65.23 Occlusion and stenosis of bilateral carotid arteries; I73.9 Peripheral vascular disease, unspecified; I87.2 Venous insufficiency (chronic) (peripheral); M79.89 Other specified soft tissue disorders | CPT/HCPCS: 76770; 93880; 93922; 93925; 93970 ==

== ENCOUNTER 2025-03-14 06:13 | Day surgery (SDC) | payer MEDICARE, BC, SELFPAY ==
[2025-03-14] VITALS (26 sets, daily range): BP systolic 70–137; BP diastolic 40–70; BMI 32.0
[2025-03-14] MEDS: NSS 500 IV (06:48)
[2025-03-14 06:57] LABS: Hematocrit 46.6 % (37.0-47.0); Hemoglobin 15.6 g/dL (12.0-16.0); Mean Corp Hgb Conc. 33.5 g/dL (33.0-37.0); Mean Corpuscular Volume 95.9 fL (81.0-99.0); Platelet Count 116 10^3/uL (130-400); Red Cell Dist. Width 13.5 % (11.5-14.5)
[2025-03-14 07:00] LABS: INR 1.05; PT 14.2 Sec (11.4-14.6)
[2025-03-14 07:01] LABS: APTT 31.1 Sec (23.4-35.0)
[2025-03-14 07:07] LABS: Blood Urea Nitrogen 29 mg/dl (7-17); Calcium 10.0 mg/dl (8.4-10.2); Carbon Dioxide 32 mmol/L (22-30); Chloride 103 mmol/L (98-107); Estimated Creatinine Clearance 34 ml/min; Glucose 98 mg/dl (70-99); Potassium 3.4 mmol/L (3.5-5.1); Sodium 143 mmol/L (135-145); eGFR 39.55
--- NOTE | 2025-03-14 07:10 | W.SUR.PREOP ---
Pre-Operative Surgical Note
-
I have examined this patient prior to the performance of the scheduled procedure.
The patient's condition is unchanged from the time of the current History and
Physical and the patient is able to undergo the scheduled procedure.
--- NOTE | 2025-03-14 08:31 | W.SUR.POST ---
Surgical Immediate Post Op
Note
Pre Op Diagnosis: PAD
Post Op Diagnosis: PAD
Procedure Performed: Left lower extremity arteriogram, SFA balloon angioplasty and stent placement x 2, left external iliac stent placement
Primary Surgeon: Hammad
Anesthesia: Local and sedation
Estimated Blood Loss: Less than 2 cc
Fluids: See anesthesia flowsheet
Drains/Shunts: None
Specimens/Cultures: None
Doppler/Duplex/Angio (Y/N): Y
Complications: None
Operative Findings: Palpable DP pulse upon completion
--- NOTE | 2025-03-14 08:55 | OR.RPT ---
Operative Report
Operative Report
PROCEDURE DATE: 03/14/2025
Preoperative diagnosis: Severe peripheral arterial disease with ischemic rest pain left lower extremity.
Postoperative diagnosis: Same
Procedure:
1. Duplex assisted cannulation right common femoral artery.
2. Aortogram and pelvic angiogram.
3. Left lower extremity arteriogram with third order vessel catheterization of left popliteal artery via right common femoral artery puncture.
4. Balloon angioplasty and stent placement left superficial femoral artery occlusion with 2 overlapping 5 mm Cook Zilver PTX drug-eluting stents (5 mm x 6 cm, 5 mm x 4 cm).
5. Balloon angioplasty and stent placement left external iliac artery with 7 mm x 6 cm Cook Zilver nondrug eluding self-expanding stent.
6. Right femoral angiogram.
7. Supervision and interpretation.
Surgeon: Hammad
Component Assembler Supervisor: None
Complications: None
Anesthesia: Local, sedation
Fluoroscopy:
10.4 min
94 mGy
15.24 gy.cm2
Indications for procedure:
Ischemic rest pain left lower extremity. Risk/benefits/alternatives of angiography fully discussed. Patient understood and wished to proceed.
Description of procedure:
Patient was identified, brought to the operating room. Placed on the table in the supine position. After the adequate administration of anesthesia, the patient was prepped and draped in the standard surgical fashion. A standard preoperative
timeout was undertaken and everybody was in agreement with the plan.
The right common femoral artery was accessed with a micropuncture kit under direct duplex ultrasound guidance. A 5 Malay sheath was then advanced over a 0.035 inch wire, and a de la o's hook catheter was advanced into the abdominal aorta.
Aortogram and pelvic angiogram was obtained. Findings as follows:
Infrarenal aorta: Patent with eccentric calcified plaque, but no significant stenosis.
Right common iliac artery: Patent with no significant stenosis. Eccentric calcified plaque.
Right external iliac artery: Patent with possible mild mid to distal diffuse stenosis.
Left common iliac artery: Patent with no significant stenosis. Eccentric calcified plaque.
Left external iliac artery: Patent with significant plaque proximally and moderate to high-grade stenosis over a 3 to 4 cm segment.
Using a floppy angled hydrophilic wire, the left common femoral artery was cannulated and the catheter was advanced. Left lower extremity arteriogram was obtained. Findings as follows:
Common femoral artery: Patent with no significant stenosis, mild luminal irregularities with some eccentric plaque.
Profunda femoris artery: Patent with no significant stenosis.
Superficial femoral artery: Diffusely somewhat small, luminal irregularities and some plaque. Occluded in the midsegment with reconstitution of the distal superficial femoral artery. Length of occlusion approximately 4 cm.
Popliteal artery: Patent with no significant stenosis.
Anterior tibial artery: Appeared patent with no obvious stenoses, but poor filling/opacification distally.
Tibial peroneal trunk: Patent with no definitive stenosis.
Peroneal artery: Patent with no definitive stenosis, but poor filling/opacification distally.
Posterior tibial artery: Occluded about 2 to 3 cm beyond the origin with no reconstitution distally.
At this point I selectively cannulated the superficial femoral artery and then over a Storq wire exchanged for a 6 Malay up and over sheath. The patient was given 7000 units of intravenous heparin. Next under roadmap assisted guidance, using a
floppy angled hydrophilic wire and a CXI catheter I was able to subintimal he traversed the area of occlusion of the superficial femoral artery with successful reentry into the true lumen. I advanced the catheter and angiographically confirmed that
I was in the true lumen. Next I exchanged back for a Storq wire. I then primarily stented the occluded segment with a 5 mm x 6 cm Cook Zilver PTX stent. However I felt this was a little bit too short after I had placed it and needed to be
extended more proximally. Therefore I then used a 5 mm x 4 cm overlapping Cook Zilver PTX stent. These were post angioplasty with 5 mm angioplasty balloon. Completion angiogram demonstrated excellent result with resolution of the stenosis, and
preserved flow into the runoff.
At this point, I then withdrew my sheath to the left common iliac artery. Now I primarily placed a stent across the proximal external iliac artery severe plaque stenosis with a Cook 7 mm x 6 cm nondrug eluding self-expanding stent. This was post
angioplastied with a 6 mm balloon. Completion angiogram demonstrated excellent result with no residual stenosis. At this point my sheath was withdrawn to the right external iliac artery. Right femoral angiogram demonstrated good puncture in the
right common femoral artery. Patent femoral bifurcation proximally on the right side. At this point I was satisfied. I exchanged for a short 6 Malay sheath. Wires and catheters were withdrawn. The sheath will be withdrawn in the recovery room.
The patient was transferred to the recovery room in stable condition. The patient tolerated the procedure well. Upon completion she had a palpable left dorsalis pedis pulse.
[2025-03-14] MEDS: NSS 1000 IV (15:00)
--- NOTE | 2025-03-14 16:00 | PTCARENOTE ---
patient awake and alert; after using bathroom blood pressure dropped to high 80's, patient denied any symptoms. IV fluid restarted as previously prescribed. right groin check no hematoma with weak pedal pulses. AUTO WRECKER made aware
== END 2025-03-14 17:00 | disposition home or self-care (01) ==
LOC: CATH 06:13
PROVIDERS: ATTENDING PHYSICIAN Surgery Vascular Surgery; OTHER PHYSICIAN Internal Medicine Cardiovascular Disease; PRIMARYCARE PHYSICIAN Nurse Practitioner Family
DX: I70.222 Atherosclerosis of native arteries of extremities with rest pain, left leg (principal); I48.91 Unspecified atrial fibrillation; I87.2 Venous insufficiency (chronic) (peripheral); Z79.82 Long term (current) use of aspirin; Z79.01 Long term (current) use of anticoagulants; Z79.899 Other long term (current) drug therapy
CPT/HCPCS: 37226; 37221; 75625; 75710; 80048; 85027; 85610; 85730; 86850; 86900; 86901; C1725; C1769; C1874; C1876; C1887; C1894; Q9967

== ENCOUNTER → 2025-04-16 12:53 | Outpatient (REF) | payer MEDICARE, BC, SELFPAY | LOC: RAD 12:53 | PROVIDERS: ATTENDING PHYSICIAN Surgery Vascular Surgery; FAMILY PHYSICIAN Nurse Practitioner Family | DX: I73.9 Peripheral vascular disease, unspecified (principal) | CPT/HCPCS: 93922; 93925; 93978 ==